=== PATIENT | female | born 1990 | race Hispanic/Latino ===

== ENCOUNTER 2017-04-08 21:38 | Emergency (ER) | payer SELFPAY ==
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
[2017-04-09 00:29] VITALS: BP 115/72; PULSE 75; RESP 16; TEMP 97.9
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
--- NOTE | 2017-04-09 14:16 | RAD ---
PROCEDURE: Radiographs of the pelvis. HISTORY: fall, right posterior pain COMPARISON: None. FINDINGS: BONES: Pelvic Bones: The pelvic ring is intact. Hips: No acute displaced fracture or dislocation. JOINTS: Sacroiliac Joints: Normal. Pubic Symphysis: Normal. OTHER FINDINGS: None. IMPRESSION: No acute fracture or dislocation.
[2017-04-11 02:36] VITALS: O2SAT 99
== END 2017-04-09 00:34 | disposition home or self-care (01) ==
LOC: H.ER 21:38
DX: S09.90XA Unspecified injury of head, initial encounter (principal); S30.0XXA Contusion of lower back and pelvis, initial encounter; R10.2 Pelvic and perineal pain; Y04.0XXA Assault by unarmed brawl or fight, initial encounter; Y92.89 Other specified places as the place of occurrence of the external cause